=== PATIENT | male | born 1930 | race Caucasian/White ===

== ENCOUNTER 2016-03-31 16:22 | Inpatient (IN) | payer OTHER ==
[2016-03-31] MEDS ORDERED: DUONEB INH ONE (21:26)
[2016-03-31] MEDS ORDERED: DEXTROSE 50% SYRINGE 50 ML IV PRN (23:10)
[2016-03-31] MEDS ORDERED: SALINE FLUSH 10 ML FLUSH PRN (23:10)
[2016-03-31] MEDS ORDERED: SODIUM CHLORIDE 0.9% FLUSH BAG 500 ML IV PRN (23:10)
[2016-03-31] MEDS ORDERED: GLUCAGON 1 MG VIAL IM PRN (23:10)
[2016-03-31 23:40] VITALS: BP_SYST 132; RESP 18; TEMP 97.6
[2016-04-01] VITALS (7 sets, daily range): BP systolic 103–133; RESP 16–20; TEMP 97.5–98.5
[2016-04-01] MEDS: DUONEB INH SCH ×6 (02:33→23:03)
[2016-04-01] MEDS: SPIRONOLACTONE 25 MG TAB PO SCH ×3 (08:45→20:45)
[2016-04-01] MEDS: SALINE FLUSH 10 ML FLUSH SCH ×2 (08:47→20:44)
[2016-04-01] MEDS ORDERED: Furosemide 40 MG/4 ML VIAL IV SCH (09:00)
[2016-04-01] MEDS ORDERED: MISSING DOSE XX ONE ×2 (14:00→20:30)
[2016-04-01] MEDS: CITALOPRAM 20 MG TAB PO SCH ×2 (14:18→20:44)
[2016-04-01] MEDS: METHYLPRED SOD SUCC 40 MG VIAL IV SCH ×2 (15:30→20:44)
[2016-04-01] MEDS: LEVOFLOXACIN 500 MG/100 ML 100 ML IV SCH (16:21)
[2016-04-01] MEDS: Furosemide 40 MG/4 ML VIAL IV SCH (16:23)
[2016-04-01] MEDS: ROSUVASTATIN 5 MG TAB PO SCH (20:44)
[2016-04-02] VITALS (7 sets, daily range): BP systolic 93–130; RESP 16–20; TEMP 97.1–98.1
[2016-04-02] MEDS: DUONEB INH SCH ×6 (02:50→23:17)
[2016-04-02] MEDS: LEVOFLOXACIN 500 MG/100 ML 100 ML IV SCH (08:56)
[2016-04-02] MEDS: SPIRONOLACTONE 25 MG TAB PO SCH ×3 (08:57→19:54)
[2016-04-02] MEDS: CITALOPRAM 20 MG TAB PO SCH ×2 (08:57→19:54)
[2016-04-02] MEDS: Furosemide 40 MG/4 ML VIAL IV SCH ×2 (08:58→17:16)
[2016-04-02] MEDS: METHYLPRED SOD SUCC 40 MG VIAL IV SCH ×2 (08:59→19:55)
[2016-04-02] MEDS: SALINE FLUSH 10 ML FLUSH SCH ×2 (09:00→19:54)
[2016-04-02] MEDS: ROSUVASTATIN 5 MG TAB PO SCH (19:54)
[2016-04-03] MEDS: DUONEB INH SCH ×6 (03:00→22:31)
[2016-04-03 03:51] VITALS: BP_SYST 124; RESP 18; TEMP 98.4
[2016-04-03 08:04] VITALS: BP_SYST 118; RESP 18; TEMP 97.9
[2016-04-03] MEDS: METHYLPRED SOD SUCC 40 MG VIAL IV SCH ×2 (08:05→20:38)
[2016-04-03] MEDS: SALINE FLUSH 10 ML FLUSH SCH ×2 (08:06→20:39)
[2016-04-03] MEDS: LEVOFLOXACIN 500 MG/100 ML 100 ML IV SCH (08:07)
[2016-04-03] MEDS: CITALOPRAM 20 MG TAB PO SCH ×2 (08:07→20:36)
[2016-04-03] MEDS: SPIRONOLACTONE 25 MG TAB PO SCH ×3 (08:07→20:36)
[2016-04-03] MEDS: Furosemide 40 MG/4 ML VIAL IV SCH ×2 (08:07→17:06)
[2016-04-03 11:41] VITALS: BP_SYST 124; RESP 16; TEMP 97.7
[2016-04-03 15:45] VITALS: BP_SYST 123; RESP 18; TEMP 97.4
[2016-04-03 19:50] VITALS: BP_SYST 131; RESP 24; TEMP 97.5
[2016-04-03] MEDS: ROSUVASTATIN 5 MG TAB PO SCH (20:36)
[2016-04-04 00:05] VITALS: BP_SYST 136; RESP 24; TEMP 97.7
[2016-04-04] MEDS: DUONEB INH SCH ×6 (02:47→22:59)
[2016-04-04 04:14] VITALS: BP_SYST 103; RESP 18; TEMP 98.6
[2016-04-04 07:35] VITALS: BP_SYST 124; RESP 14; TEMP 97.4
[2016-04-04] MEDS ORDERED: MISSING DOSE XX ONE (08:30)
[2016-04-04] MEDS: SALINE FLUSH 10 ML FLUSH SCH ×2 (08:34→20:18)
[2016-04-04] MEDS: METHYLPRED SOD SUCC 40 MG VIAL IV SCH ×2 (08:34→20:18)
[2016-04-04] MEDS: CITALOPRAM 20 MG TAB PO SCH ×2 (08:35→20:18)
[2016-04-04] MEDS: Furosemide 40 MG/4 ML VIAL IV SCH ×2 (08:35→16:07)
[2016-04-04] MEDS: LEVOFLOXACIN 500 MG/100 ML 100 ML IV SCH (08:35)
[2016-04-04] MEDS: SPIRONOLACTONE 25 MG TAB PO SCH ×3 (09:00→20:18)
[2016-04-04 11:19] VITALS: BP_SYST 132; RESP 18; TEMP 97.6
[2016-04-04 15:18] VITALS: BP_SYST 124; RESP 18; TEMP 98.2
[2016-04-04 19:46] VITALS: BP_SYST 123; RESP 22; TEMP 97.6
[2016-04-04] MEDS: ROSUVASTATIN 5 MG TAB PO SCH (20:18)
[2016-04-05] VITALS: BP_SYST 128; TEMP 97.6
[2016-04-05] MEDS: DUONEB INH SCH ×6 (03:00→22:38)
[2016-04-05 04:18] VITALS: BP_SYST 126; RESP 18; TEMP 97.6
[2016-04-05 07:34] VITALS: BP_SYST 136; RESP 16; TEMP 97.6
[2016-04-05] MEDS: Furosemide 40 MG/4 ML VIAL IV SCH ×2 (08:45→17:06)
[2016-04-05] MEDS: CITALOPRAM 20 MG TAB PO SCH ×2 (08:45→21:24)
[2016-04-05] MEDS: SPIRONOLACTONE 25 MG TAB PO SCH ×3 (08:45→21:24)
[2016-04-05] MEDS: METHYLPRED SOD SUCC 40 MG VIAL IV SCH ×2 (08:46→21:24)
[2016-04-05] MEDS: SALINE FLUSH 10 ML FLUSH SCH ×2 (08:47→21:25)
[2016-04-05] MEDS: LEVOFLOXACIN 500 MG/100 ML 100 ML IV SCH (08:47)
[2016-04-05 11:39] VITALS: BP_SYST 135; TEMP 97.4
[2016-04-05 20:02] VITALS: BP_SYST 126; RESP 24; TEMP 97.5
[2016-04-05] MEDS: ROSUVASTATIN 5 MG TAB PO SCH (21:24)
[2016-04-06 00:11] VITALS: BP_SYST 118; RESP 20; TEMP 97.9
[2016-04-06] MEDS: DUONEB INH SCH ×3 (02:59→11:01)
[2016-04-06 04:18] VITALS: BP_SYST 116; RESP 20; TEMP 97.8
[2016-04-06 07:20] VITALS: BP_SYST 123; RESP 20; TEMP 97.8
[2016-04-06] MEDS: Furosemide 40 MG/4 ML VIAL IV SCH (08:10)
[2016-04-06] MEDS: SALINE FLUSH 10 ML FLUSH SCH (08:10)
[2016-04-06] MEDS: SPIRONOLACTONE 25 MG TAB PO SCH (08:11)
[2016-04-06] MEDS: LEVOFLOXACIN 500 MG/100 ML 100 ML IV SCH (08:11)
[2016-04-06] MEDS: CITALOPRAM 20 MG TAB PO SCH (08:11)
[2016-04-06 11:20] VITALS: BP_SYST 128; RESP 20; TEMP 97.4
[2016-04-06 11:44] VITALS: BP_SYST 123; RESP 20; TEMP 97.8
== END 2016-04-06 12:38 | disposition home health service (06) | DRG 187 ==
LOC: ENRESERVDT → ENRESERVTM → ER 16:22 → EMR 22:23 → ENPENDDIS 22:23 → 4THE 04-01 00:07
PROVIDERS: ADMIT Internal Medicine; ATTEND Internal Medicine
PROC: 0W993ZZ Drainage of Right Pleural Cavity, Percutaneous Approach (ICD-10-PCS; principal; 2016-04-02)
DX: J90 Pleural effusion, not elsewhere classified (principal); J44.1 Chronic obstructive pulmonary disease with (acute) exacerbation; I50.9 Heart failure, unspecified; I11.0 Hypertensive heart disease with heart failure; I48.91 Unspecified atrial fibrillation; J98.11 Atelectasis; Z87.891 Personal history of nicotine dependence; E78.00 Pure hypercholesterolemia, unspecified; F32.9 Major depressive disorder, single episode, unspecified; E11.9 Type 2 diabetes mellitus without complications; S20.211A Contusion of right front wall of thorax, initial encounter; W19.XXXA Unspecified fall, initial encounter; I25.10 Atherosclerotic heart disease of native coronary artery without angina pectoris; Z95.2 Presence of prosthetic heart valve; Z95.1 Presence of aortocoronary bypass graft; Z86.73 Personal history of transient ischemic attack (TIA), and cerebral infarction without residual deficits; Z95.0 Presence of cardiac pacemaker; Z79.51 Long term (current) use of inhaled steroids; Z79.01 Long term (current) use of anticoagulants; Z79.4 Long term (current) use of insulin; Z82.49 Family history of ischemic heart disease and other diseases of the circulatory system; Z83.3 Family history of diabetes mellitus; Z80.9 Family history of malignant neoplasm, unspecified
CPT/HCPCS: 32555; 36600; 71010; 71020; 71250; 80053; 82947; 85025; 85610; 93005; 94640; 94799

== ENCOUNTER 2016-04-25 11:38 | Inpatient (IN) | payer OTHER ==
[~2016-04-25] VITALS: Ht 172.7 cm; Wt 76.3 kg
[2016-04-25] MEDS ORDERED: ACETAMINOPHEN 325 MG TAB PO PRN (17:10)
[2016-04-25] MEDS ORDERED: MAG HYDROX 30 ML UDC PO PRN (17:10)
[2016-04-28] VITALS (10 sets, daily range): BP systolic 114–126; RESP 16–24; TEMP 97.2–98.2; Ht 172.7 cm; Wt 76.3 kg
[2016-04-28] MEDS ORDERED: ACETAMINOPHEN 325 MG TAB PO PRN (11:35)
[2016-04-28] MEDS ORDERED: MAG HYDROX 30 ML UDC PO PRN (11:35)
[2016-04-28] MEDS: SPIRONOLACTONE 25 MG TAB PO SCH ×2 (12:34→16:32)
[2016-04-28] MEDS: CITALOPRAM 20 MG TAB PO SCH ×3 (12:34→22:11)
[2016-04-28] MEDS: FENOFIBRATE 145 MG TAB PO SCH ×2 (12:34→16:32)
[2016-04-28] MEDS: Furosemide 20 MG TAB PO SCH ×4 (12:35→21:15)
[2016-04-28] MEDS: ROSUVASTATIN 5 MG TAB PO SCH ×3 (13:32→21:14)
[2016-04-28] MEDS: NEB-ALBUTEROL 2.5 MG/3 ML INH SCH ×5 (14:23→22:57)
[2016-04-28] MEDS: LEVEMIR INSULIN SUBQ SCH ×2 (16:31→18:16)
[2016-04-28] MEDS: LEVOFLOXACIN 500 MG/100 ML 100 ML IV SCH (18:16)
[2016-04-29 03:38] VITALS: BP_SYST 119; RESP 20; TEMP 98.4
[2016-04-29 07:03] VITALS: BP_SYST 111; RESP 16; TEMP 98.1
[2016-04-29] MEDS: NEB-ALBUTEROL 2.5 MG/3 ML INH SCH ×5 (07:37→22:34)
[2016-04-29] MEDS: FENOFIBRATE 145 MG TAB PO SCH (09:51)
[2016-04-29] MEDS: Furosemide 20 MG TAB PO SCH ×2 (09:51→21:37)
[2016-04-29] MEDS: SPIRONOLACTONE 25 MG TAB PO SCH (09:51)
[2016-04-29] MEDS: LEVOFLOXACIN 500 MG/100 ML 100 ML IV SCH (09:51)
[2016-04-29] MEDS: CITALOPRAM 20 MG TAB PO SCH ×2 (09:52→21:37)
[2016-04-29] MEDS: LEVEMIR INSULIN SUBQ SCH ×2 (09:53→17:00)
[2016-04-29 10:51] VITALS: BP_SYST 111; RESP 16; TEMP 98.1; TEMP 98.4
[2016-04-29 14:45] VITALS: BP_SYST 122; RESP 18; TEMP 98.1
[2016-04-29] MEDS: VANCOMYCIN SUSP 250 MG/5 ML UDC PO SCH (18:21)
[2016-04-29 19:27] VITALS: BP_SYST 108; RESP 24; TEMP 97.4
[2016-04-29] MEDS: ROSUVASTATIN 5 MG TAB PO SCH (21:37)
[2016-04-29 23:32] VITALS: BP_SYST 112; RESP 22; TEMP 98
[2016-04-30] MEDS: VANCOMYCIN SUSP 250 MG/5 ML UDC PO SCH ×4 (00:25→18:08)
[2016-04-30 05:40] VITALS: BP_SYST 122; RESP 22; TEMP 97.8
[2016-04-30] MEDS: NEB-ALBUTEROL 2.5 MG/3 ML INH SCH ×5 (06:19→22:21)
[2016-04-30 07:38] VITALS: BP_SYST 106; RESP 16; TEMP 97.3
[2016-04-30] MEDS: SPIRONOLACTONE 25 MG TAB PO SCH (08:22)
[2016-04-30] MEDS: Furosemide 20 MG TAB PO SCH ×2 (08:22→19:56)
[2016-04-30] MEDS: FENOFIBRATE 145 MG TAB PO SCH (08:23)
[2016-04-30] MEDS: CITALOPRAM 20 MG TAB PO SCH ×2 (08:23→19:56)
[2016-04-30] MEDS ORDERED: KCL CR 20 MEQ TAB PO ONE (09:10)
[2016-04-30 10:47] VITALS: BP_SYST 120; RESP 18; TEMP 97.7
[2016-04-30] MEDS: LEVEMIR INSULIN SUBQ SCH ×2 (11:58→17:00)
[2016-04-30 15:37] VITALS: BP_SYST 118; RESP 18; TEMP 98.3
[2016-04-30] MEDS: ROSUVASTATIN 5 MG TAB PO SCH (19:56)
[2016-04-30] MEDS ORDERED: SALINE FLUSH 10 ML FLUSH PRN (20:00)
[2016-04-30] MEDS: SALINE FLUSH 10 ML FLUSH SCH (20:00)
[2016-04-30 20:06] VITALS: BP_SYST 116; RESP 18; TEMP 97.9
[2016-04-30 23:45] VITALS: BP_SYST 100; RESP 18; TEMP 96.5
[2016-05-01] MEDS: VANCOMYCIN SUSP 250 MG/5 ML UDC PO SCH ×4 (00:49→18:13)
[2016-05-01 04:45] VITALS: BP_SYST 122; RESP 18; TEMP 96.9
[2016-05-01] MEDS: SODIUM CHLORIDE 0.9% FLUSH BAG 500 ML IV SCH (06:00)
[2016-05-01] MEDS ORDERED: DEXTROSE 50% ONE (07:42)
[2016-05-01] MEDS ORDERED: DEXTROSE 5% 1,000 ML IV SCH (07:55)
[2016-05-01] MEDS: SALINE FLUSH 10 ML FLUSH SCH ×2 (08:00→19:49)
[2016-05-01] MEDS: NEB-ALBUTEROL 2.5 MG/3 ML INH SCH ×5 (08:02→22:44)
[2016-05-01 08:33] VITALS: BP_SYST 104; RESP 20; TEMP 97.6
[2016-05-01] MEDS: LEVEMIR INSULIN SUBQ SCH (09:00)
[2016-05-01] MEDS: Furosemide 20 MG TAB PO SCH ×2 (10:09→19:49)
[2016-05-01] MEDS: FENOFIBRATE 145 MG TAB PO SCH (10:09)
[2016-05-01] MEDS: CITALOPRAM 20 MG TAB PO SCH ×2 (10:09→19:49)
[2016-05-01] MEDS: SPIRONOLACTONE 25 MG TAB PO SCH (10:10)
[2016-05-01 11:38] VITALS: BP_SYST 122; RESP 16; TEMP 96.7
[2016-05-01 15:32] VITALS: BP_SYST 112; RESP 20; TEMP 98
[2016-05-01] MEDS: ROSUVASTATIN 5 MG TAB PO SCH (19:49)
[2016-05-01 20:13] VITALS: BP_SYST 118; RESP 20; TEMP 97.6
[2016-05-02] VITALS (7 sets, daily range): BP systolic 110–128; RESP 16–22; TEMP 97–97.8
[2016-05-02] MEDS: VANCOMYCIN SUSP 250 MG/5 ML UDC PO SCH ×5 (00:28→23:17)
[2016-05-02] MEDS: SODIUM CHLORIDE 0.9% FLUSH BAG 500 ML IV SCH (05:56)
[2016-05-02] MEDS: NEB-ALBUTEROL 2.5 MG/3 ML INH SCH ×5 (07:29→23:04)
[2016-05-02] MEDS: SALINE FLUSH 10 ML FLUSH SCH ×2 (07:42→19:23)
[2016-05-02] MEDS: LEVEMIR INSULIN SUBQ SCH (10:26)
[2016-05-02] MEDS: FENOFIBRATE 145 MG TAB PO SCH (10:26)
[2016-05-02] MEDS: Furosemide 20 MG TAB PO SCH ×2 (10:27→20:58)
[2016-05-02] MEDS: SPIRONOLACTONE 25 MG TAB PO SCH (10:27)
[2016-05-02] MEDS: CITALOPRAM 20 MG TAB PO SCH ×2 (10:27→20:58)
[2016-05-02] MEDS: METRONIDAZOLE 500MG/100ML 100 ML IV SCH ×2 (18:06→23:17)
[2016-05-02] MEDS: ROSUVASTATIN 5 MG TAB PO SCH (20:58)
[2016-05-03 03:37] VITALS: BP_SYST 112; RESP 20; TEMP 97.8
[2016-05-03] MEDS: VANCOMYCIN SUSP 250 MG/5 ML UDC PO SCH ×3 (06:28→18:21)
[2016-05-03] MEDS: SODIUM CHLORIDE 0.9% FLUSH BAG 500 ML IV SCH (06:28)
[2016-05-03 07:09] VITALS: BP_SYST 132; RESP 20; TEMP 97.1
[2016-05-03] MEDS: METRONIDAZOLE 500MG/100ML 100 ML IV SCH ×2 (07:31→16:40)
[2016-05-03] MEDS: SALINE FLUSH 10 ML FLUSH SCH (07:31)
[2016-05-03] MEDS: FENOFIBRATE 145 MG TAB PO SCH (09:15)
[2016-05-03] MEDS: Furosemide 20 MG TAB PO SCH ×2 (09:16→19:45)
[2016-05-03] MEDS: CITALOPRAM 20 MG TAB PO SCH ×2 (09:16→19:45)
[2016-05-03] MEDS: SPIRONOLACTONE 25 MG TAB PO SCH (09:16)
[2016-05-03] MEDS: NEB-ALBUTEROL 2.5 MG/3 ML INH SCH ×4 (10:20→22:16)
[2016-05-03 10:45] VITALS: BP_SYST 128; RESP 20; TEMP 96.4
[2016-05-03 16:01] VITALS: BP_SYST 132; RESP 20; TEMP 97.8
[2016-05-03 19:19] VITALS: BP_SYST 120; RESP 22; TEMP 97.7
[2016-05-03] MEDS: ROSUVASTATIN 5 MG TAB PO SCH (19:45)
[2016-05-03 23:39] VITALS: BP_SYST 124; RESP 20; TEMP 97.8
[2016-05-04] MEDS: VANCOMYCIN SUSP 250 MG/5 ML UDC PO SCH ×5 (00:47→23:37)
[2016-05-04] MEDS: METRONIDAZOLE 500MG/100ML 100 ML IV SCH ×4 (00:47→23:37)
[2016-05-04] MEDS: SALINE FLUSH 10 ML FLUSH SCH ×3 (01:05→20:52)
[2016-05-04 04:46] VITALS: BP_SYST 122; RESP 20; TEMP 97.6
[2016-05-04] MEDS: SODIUM CHLORIDE 0.9% FLUSH BAG 500 ML IV SCH (05:24)
[2016-05-04] MEDS: NEB-ALBUTEROL 2.5 MG/3 ML INH SCH ×5 (06:26→22:29)
[2016-05-04 07:43] VITALS: BP_SYST 100; RESP 18; TEMP 96.9
[2016-05-04] MEDS: CITALOPRAM 20 MG TAB PO SCH ×2 (08:52→20:52)
[2016-05-04] MEDS: SPIRONOLACTONE 25 MG TAB PO SCH (08:52)
[2016-05-04] MEDS: Furosemide 20 MG TAB PO SCH ×2 (08:52→20:53)
[2016-05-04] MEDS: FENOFIBRATE 145 MG TAB PO SCH (08:52)
[2016-05-04 10:51] VITALS: BP_SYST 106; RESP 18; TEMP 97.4
[2016-05-04 14:48] VITALS: BP_SYST 104; RESP 18; TEMP 97.7
[2016-05-04 19:19] VITALS: BP_SYST 108; RESP 18; TEMP 97.2
[2016-05-04] MEDS: ROSUVASTATIN 5 MG TAB PO SCH (20:52)
[2016-05-04 23:45] VITALS: BP_SYST 130; RESP 18; TEMP 97
[2016-05-05 05:01] VITALS: BP_SYST 116; RESP 20; TEMP 97.6
[2016-05-05] MEDS: NEB-ALBUTEROL 2.5 MG/3 ML INH SCH ×2 (06:23→10:29)
[2016-05-05] MEDS: VANCOMYCIN SUSP 250 MG/5 ML UDC PO SCH ×2 (06:42→12:59)
[2016-05-05] MEDS: SODIUM CHLORIDE 0.9% FLUSH BAG 500 ML IV SCH (06:42)
[2016-05-05 07:54] VITALS: BP_SYST 110; RESP 22; TEMP 96.6
[2016-05-05] MEDS: FENOFIBRATE 145 MG TAB PO SCH (08:43)
[2016-05-05] MEDS: SPIRONOLACTONE 25 MG TAB PO SCH (08:43)
[2016-05-05] MEDS: CITALOPRAM 20 MG TAB PO SCH (08:43)
[2016-05-05] MEDS: METRONIDAZOLE 500MG/100ML 100 ML IV SCH (08:43)
[2016-05-05] MEDS: Furosemide 20 MG TAB PO SCH (08:43)
[2016-05-05] MEDS: SALINE FLUSH 10 ML FLUSH SCH (08:44)
[2016-05-05 11:11] VITALS: BP_SYST 102; RESP 20; TEMP 97.5
[2016-05-05 13:09] VITALS: BP_SYST 102; RESP 20; TEMP 97.5
== END 2016-05-05 13:48 | disposition home health service (06) | DRG 187 ==
LOC: 4NT 04-28 09:33 → OBSVTOIN 04-29 15:35 → ENPENDDIS 04-29 15:35
PROVIDERS: ADMIT Internal Medicine; ATTEND Internal Medicine
PROC: 0W993ZZ Drainage of Right Pleural Cavity, Percutaneous Approach (ICD-10-PCS; principal; 2016-04-28)
DX: J90 Pleural effusion, not elsewhere classified (principal); A04.7 Enterocolitis due to Clostridium difficile; I50.9 Heart failure, unspecified; I11.0 Hypertensive heart disease with heart failure; E11.649 Type 2 diabetes mellitus with hypoglycemia without coma; J44.1 Chronic obstructive pulmonary disease with (acute) exacerbation; E78.00 Pure hypercholesterolemia, unspecified; F32.9 Major depressive disorder, single episode, unspecified; I25.10 Atherosclerotic heart disease of native coronary artery without angina pectoris; I25.2 Old myocardial infarction; I48.91 Unspecified atrial fibrillation; Z95.2 Presence of prosthetic heart valve; Z79.01 Long term (current) use of anticoagulants
CPT/HCPCS: 32555; 36430; 71020; 80048; 80053; 82947; 85025; 85610; 85730; 86738; 86900; 86901; 87493; 88108; 88305; 94640; 94762; 94799